=== PATIENT | female | born 1945 | race Caucasian/White ===

== ENCOUNTER 2017-05-09 18:25 | Observation (INO) | payer MEDICARE ==
[~2017-05-09] VITALS: Ht 165.1 cm; Wt 109.2 kg
--- NOTE | ~2017-05-09 | HEMODYNAMI ---
PATIENT:SABIHA Arevalo MEDICAL RECORD: [id number] : 43 [id number] ADMISSION DATE: 05/09/17 Generatedon:05/10/201711:31 Patient name: SABIHA Arevalo Patient #: [id number] SSN: DO B: 1945 Date of study: 05/10/2017 Page: Of Hemodynamic Procedure Report Patient Data Patient Demographics Procedure consent was obtained First Name: SABIHA Gender: Female Last Name: Mickey : 1945 Patient #: [id number] Age: 71 year(s) Race: Unknown Additional ID: [id number] Contact details Address: [address] State: [place] City: [facility] Zip code: [address] Admission Admission Data Admission Date: 05/09/2017 Admission Time: 22:26 Room #: .2114 Height (in.): 65 BSA: 2.14 (m2) Height (cm.): 165.1 BMI: 39.99 (kg/m2) Weight (lbs.): 240.31 Weight (kg.): 109 Lab Results Lab Result Date: 05/10/2017 Lab Result Time: 0:00 Biochemistry Name Units Result Min Max BUN mg/dl 11 --(-*--)-- 7 18 CK-MB ng/ml 0.5 --(*---)-- 0 3.6 Creatinine mg/dl 0.8 --(-*--)-- 0.6 1.3 Troponin l ng/ml 0.017 --(-*--)-- 0 0.06 CBC Name Units Result Min Max Hemoglobin g/dl 13.3 -*(----)-- 13.5 17.5 Procedure Procedure Types Cath Procedure Diagnostic Procedure LHC LHC w/Coronaries Miscellaneous Procedures Moderate Sedation up to 15 minutes Procedure Description Procedure Date Procedure Date: 05/10/2017 Procedure Start Time: 11:20 Procedure End Time: 11:31 Procedure Staff Name Function Eliot Vann MD Performing Physician Stacy Pope RN Nurse Alexandro Fine RT Monitor Russ Cisse RN Stone Sandblaster Anderson Panchal RT Scrub Procedure Data Cath Procedure Fluoroscopy Diagnostic fluoroscopy Total fluoroscopy Time: 0.8 time: 0.8 min min Diagnostic fluoroscopy Total fluoroscopy dose: 381 dose: 381 mGy mGy Contrast Material Contrast Material Type Amount (ml) Isovue 300 59 Entry Location Entry Primary Successful Side Size Upsize Upsize Entry Closure Succes sful Closure Location (Fr) 1 (Fr) 2 (Fr) Remarks Device Remarks Femoral Right 5 Fr Exoseal artery Estimated blood loss: 10 ml Diagnostic catheters Device Type Used For End Catheter Placement Cordis 5Fr Pigtail Procedure Catheter (MP) Cordis 5Fr JL 4.0 Procedure Catheter (MP) Cordis 5Fr 3DRC Catheter Procedure (MP) Procedure Complications No complications Procedure Medications Medication Administration Route Dosage Oxygen NC 2 l/min Heparin Flush Bag added to field 2 bags (1000units/500ml NS) Lidocaine 2% added to field 20 Radial Cocktail added to field 1 syringe (Verapomil 2mg/Nitro 400mcg/Heparin 1500units) Versed I.V. 1 mg Fentanyl I.V. 50 mcg Versed I.V. 1 mg Fentanyl I.V. 50 mcg Fentanyl I.V. 50 mcg Hemodynamics Rest BSA: 2.14 (m2) O2 Consumption: Estimated: 180.06 (ml/min) O2 Consumption indexed : Estimated:84.14 (ml/min/m) Heart Rate: 50 (bpm) Snapshots Pre Cath Intra NCS Post Cath Vital Signs Time Heart Resp SPO2 NIBP (mmHg) Rhythm Pain Sedation Rate (ipm) (%) Status Level (bpm) 11:10:29 55 18 100 124/79(100) SB 0 (11) 10(A) , No pain 11:15:28 51 17 99 Measuring SB 0 (11) 10(A) , No pain 11:15:51 48 18 98 115/62(81) SB 0 (11) 10(A) , No pain 11:20:05 54 16 96 111/66(77) SB 0 (11) 10(A) , No pain 11:24:19 55 17 96 116/62(82) SB 0 (11) 9(A) , No pain 11:28:35 57 16 96 116/63(86) SB 0 (11) 9(A) , No pain 11:30:27 56 16 96 117/65(81) SB 0 (11) 10(A) , No pain Medications Time Medication Route Dose Verified Delivered Reason Notes Eff ectiveness by by 11:09:12 Oxygen NC 2 l/min Eliot Stacy Per Edwar Pope RN physician 11:09:19 Heparin Flush added 2 bags Eliot Mccabe used for Bag to Edwar Vann MD procedure (1000units/500ml field NS) 11:09:26 Lidocaine 2% added 20ml Eliot Eliot used for to vial Edwar Vann MD procedure field 11:09:33 Radial Cocktail added 1 Eliot Eliot used for (Verapomil to syringe Edwar Vann MD procedure 2mg/Nitro field 400mcg/Heparin 1500units) 11:17:50 Versed I.V. 1 mg Eliot Stacy for Edwar Pope RN sedation 11:17:55 Fentanyl I.V. 50 mcg Eliot Stacy for Edwar Pope RN sedation 11:20:25 Versed I.V. 1 mg Eliot Stacy for Edwar Pope RN sedation 11:20:33 Fentanyl I.V. 50 mcg Eliot Stacy for Edwar Pope RN sedation 11:22:20 Fentanyl I.V. 50 mcg Eliot Stacy for Edwar Pope RN sedation Procedure Log Time Note 10:50:51 Russ Cisse RN sent for patient. Start room use. 11:03:00 Time tracking: Regular hours 11:03:04 Plan of Care:Hemodynamics will remain stable., Cardiac rhythm will remain stable., Comfort level will be maintained., Respiratory function will remain adequate., Patient/ family verbilizes understanding of procedure., Procedure tolerated without complication., Recovers from procedure without complications.. 11:03:36 Patient received from PCU to CCL 2 Alert and oriented. Tansferred to table in Supine position. 11:03:37 Warm blankets applied, and tamiko hugger turned on for patient comfort. 11:03:37 Correct patient and procedure confirmed by team. 11:03:39 Signed procedure consent form obtained from patient. 11:03:40 ECG and BP/O2 sat monitors applied to patient. 11:07:34 H&P Date Dictated: 05/10/2017 Within 30 days and on chart.. 11:07:35 Pre-procedure instructions explained to patient. 11:07:36 Pre-op teaching completed and patient verbalized understanding. 11:07:37 Family in waiting room. 11:07:38 Patient NPO since Midnight. 11:07:40 Is the patient allergic to Iodine/contrast media? No. 11:07:43 Is patient on blood thinner?No 11:07:44 Patient diabetic? No. 11:07:46 Patient not . Patient is over age 55. 11:08:06 Previous problem with sedation/anesthesia? No . 11:08:09 Snore? Yes 11:08:11 Sleep apnea? No 11:08:12 Deviated septum? No 11:08:14 Opens mouth fully? Yes 11:08:16 Sticks out tongue? Yes 11:08:22 Airway obstruction? No ? 11:08:33 Dentures? Yes IN 11:08:58 Vital chart was started 11:09:12 Oxygen 2 l/min NC was administered by Stacy Pope RN; Per physician; 11:09:19 Heparin Flush Bag (1000units/500ml NS) 2 bags added to field was administered by Eliot Vann MD; used for procedure; 11:09:26 Lidocaine 2% 20ml vial added to field was administered by Eliot Vann MD; used for procedure; 11:09:33 Radial Cocktail (Verapomil 2mg/Nitro 400mcg/Heparin 1500units) 1 syringe added to field was administered by Eliot Vann MD; used for procedure; 11:16:39 Baseline sample Acquired. 11:16:43 Rhythm: sinus bradycardia 11:16:44 Full Disclosure recording started 11:16:49 Pre procedure: right dorsailis pedis pulse 1+ Palpable, but thready & weak; easily obliterated 11:16:51 Modified Flo's test Ulnar < 7 seconds 11:16:52 Patient pain scale 0/10 ?. 11:16:56 IV patent on arrival in left forearm with 0.9% NaCl at O. 11:17:01 Lab results completed and on chart. 11:17:42 Right Radial & Right Groin area was prepped with chlora-prep and draped in sterile fashion 11:17:43 Alarms reviewed by R. N. 11:17:43 Sharps counted by scrub and verified by R.N. 11:17:44 --------ALL STOP TIME OUT------ 11:17:44 Final Timeout: patient, procedure, and site verified with staff and physician. All members of the team are in agreement. 11:17:46 Right Radial & Right Groin site verified by team. 11:17:49 Physical assessment completed. ASA score P 2 - A patient with mild systemic disease as per Eliot Vann MD. 11:17:50 Versed 1 mg I.V. was administered by Stacy Pope RN; for sedation; 11:17:53 Sedation plan: IV Moderate Sedation Versed, Fentanyl 11:17:55 Fentanyl 50 mcg I.V. was administered by Stacy Pope RN; for sedation; 11:18:26 Use device set Radial Dx 11:18:29 Tegaderm 4 x 4 opened to sterile field. 11:18:30 Acist Hand Control opened to sterile field. 11:18:30 Acist Manifold opened to sterile field. 11:18:33 Acist Syringe opened to sterile field. 11:18:33 Medline Cath Pack opened to sterile field. 11:18:34 Bag Decanter opened to sterile field. 11:18:34 Terumo 6Fr Slender Glidesheath opened to sterile field. 11:18:34 St Maikel 260cm J .035 wire opened to sterile field. 11:18:35 MBrace Wrist Support opened to sterile field. 11:20:25 Versed 1 mg I.V. was administered by Stacy Pope RN; for sedation; 11:20:33 Fentanyl 50 mcg I.V. was administered by Stacy Pope RN; for sedation; 11:20:39 Procedure started. 11:20:54 Local anesthetic to right radial artery with Lidocaine 2% by Eliot Vann MD.INITIAL ACCESS ONLY 11:22:20 Fentanyl 50 mcg I.V. was administered by Stacy Pope RN; for sedation; 11:23:15 Unable to gain radial access, moving to femoral approach. 11:23:18 Local anesthetic to right femoral artery with Lidocaine 2% by Eliot Vann MD.ADDITIONAL ACCESS 11:23:24 Terumo 5Fr [place] Sheath opened to sterile field. 11:23:28 Use device set Multipack Set 11:23:30 Diagnostic Infinity 5Fr Multipack catheter opened to sterile field. 11:23:39 A 5 Fr sheath was inserted into the Right Femoral artery 11:24:11 Lab Result : Hemoglobin 13.3 g/dl 11:24:11 Lab Result : Creatinine 0.8 mg/dl 11:24:11 Lab Result : BUN 11 mg/dl 11:24:21 A Cordis 5Fr Pigtail Catheter (MP) was advanced over the wire and used for Procedure. 11:24:42 LV angiography performed. 11:24:44 LV gram done using MOTA 11:24:49 EF : 50 % 11::52 Injector settings: Ml/sec: 10, Volume: 20, 11:24:53 Catheter removed. 11:24:57 A Cordis 5Fr JL 4.0 Catheter (MP) was advanced over the wire and used for Procedure. 11:25:02 Patient Height : 165.1 cm 11:25:04 Patient Weight : 109 kg 11:25:23 LCA angiography performed. 11:26:40 Lab Result : CK-MB 0.5 ng/ml 11::40 Lab Result : Troponin l 0.017 ng/ml 11:26:43 Catheter removed. 11:26:48 A Cordis 5Fr 3DRC Catheter (MP) was advanced over the wire and used for Procedure. 11:26:54 RCA angiography performed. 11:27:03 Cordis 5Fr Exoseal opened to sterile field. 11:27:17 Sheath removed intact; hemostasis achieved with Exoseal to the Right Femoral artery. 11:27:19 Procedure ended.(Physican Out) 11:27:29 Fluoroscopy time 00.80 minutes. 11:27:32 Fluoroscopy dose: 381 mGy 11:27:32 Flurop Dose total: 381 11:27:35 Contrast amount:Isovue 300 59ml. 11:27:37 Sharps counted by scrub and verified by R.N. 11:27:38 Insertion/operative site no bleeding no hematoma. 11:27:41 Post-op/insertion site Right Femoral artery dressed using a 4 x 4 and Tegaderm. 11:27:42 Post Procedure Pulses reassessed and unchanged 11::44 Post-procedure physical assessment completed. ASA score P 2 - A patient with mild systemic disease as per Eliot Vann MD. 11:27:46 Post procedure rhythm: unchanged. 11:27:49 Estimated blood loss: 10 ml 11:27:50 Post procedure instruction explained to patient.Patient verbalizes understanding. 11:27:50 Patient needs reinforcement of post procedure teaching. 11:27:58 Procedure and supply charges have been captured, reviewed, submitted and are correct. 11:28:00 Procedure Complication : No complications 11:30:56 Vital chart was stopped 11:30:57 See physician's report for complete and final results. 11:31:00 Report given to PCU. 11:31:03 Patient transfered to PCU with Bed. 11:31:05 Procedure ended. 11:31:05 Full Disclosure recording stopped 11:31:07 End room use (Document Last) Device Usage Item Name Manufacture Quantity Catalog Hospital Part Current Minimal Lot# / Number Charge Number Stock Stock Serial# Code Tegaderm 4 1 [id number] [id number] 994896 5 x 4 Acist Hand Acist 1 99772 775510 600307 377037 5 Control [employer] Inc Acist Acist 1 21591 913590 404175 325179 5 Manifold Medical Systems Inc Acist Acist 1 08715 950437 010737 571600 20 Syringe Medical Systems Inc Medline Cardinal 1 [id number] 517531 47467 166488 5 Cath Pack Health Bag Microtek 1 2002S 791602 97794 809139 5 Decanter [employer] Inc[employer] Terumo 6Fr Terumo 1 [id number] 847500 293470 947692 [address] Maikel 1 378170 377541 490749 072839 30 260cm J .035 wire MBrace Advanced 1 140-0250-00 350348 59906 579938 5 Wrist Vascular Support Dynamics Terumo 5Fr Terumo 1 [id number] 857120 467020 221341 40 [place] Sheath Diagnostic Cardinal 1 [id number] 474546 20756 488892 30 Infinity Health 5Fr Multipack catheter Cordis 5Fr Cardinal 1 425407 5 Pigtail Health Catheter (MP) Cordis 5Fr Cardinal 1 [id number] 5 JL 4.0 Health Catheter (MP) Cordis 5Fr Cardinal 1 020178 5 3DRC Health Catheter (MP) Cordis 5Fr Cardinal 1 EX500 834593 156260 370365 10 [facility] Health Signature Audit [place] Stage Time Signature Unsigned Intra-Procedure 05/10/2017 Alexandro Fine 11:31:22 AM RT(R) Signatures Monitor : Alexandro Fine RT Signature : Date : Time : [id number] [place] [address]
--- NOTE | ~2017-05-09 | PRO ---
PATIENT:SABIHA Arevalo MEDICAL RECORD: [id number] : 43 LOCATION:D.M2 D.2114 ADMISSION DATE: 05/09/17 PROCEDURE PERFORMED BY: MARLON RODRIGUEZ MD PROCEDURE DATE: 05/10/17 PROCEDURES: 1. Left heart catheterization. 2. Selective coronary angiography. 3. Left ventriculogram. INDICATION: 1. Chest pain compatible with angina. PROCEDURE IN DETAIL: After informed consent was obtained and after detailed explanation of risks, benefits, as well as alternative therapies, the patient elected to proceed with angiogram. The right femoral area was prepped and draped in a normal sterile fashion. The right femoral artery was cannulated via modified Seldinger technique with placement of 5-Tunisian sheath. All catheters exchanged through this sheath. FINDINGS: The left ventriculogram was performed in standard 30 degree MOTA view, reveals good cardiac wall motion throughout all segments. Overall ejection fraction is 60%. SELECTIVE CORONARY ANGIOGRAPHY: 1. The left main, left anterior descending, left circumflex, and right coronary artery are all smooth-walled vessels with no angiographic evidence of coronary artery disease. OVERALL IMPRESSION: 1. No angiographic evidence of coronary artery disease. 2. Normal left heart pressures. 3. Normal left ventricular systolic function. 4. Chest pain is noncardiac in etiology. No further cardiac workup needs to be ascertained. MARLON RODRIGUEZ MD CC: [id number] DICTATION DATE: 05/10/172155 FUR POLISHER: JPASHA 05/10/172154 DIS IN 05/10/17 [facility] [address] [id number]
[2017-05-09 20:06] LABS: BASOPHILS 0.3 % (0-2); EOSINOPHILS 2.3 % (0-7); HEMATOCRIT 41.8 % (36.0-48.0); IMMATURE GRANULOCYTES 0.3 % (0-5); LYMPHOCYTES 22.8 % (15-50); MCHC 33.5 g/dL (31.0-37.0); MCV 92.5 fL (80.0-100.0); MEAN PLATELET VOLUME 9.5 fL (7.4-10.4); MONOCYTES 9.4 % (2-11); NEUTROPHILS 64.9 % (40-80); PLATELET COUNT 199 10x3/uL (130-400); RBC 4.52 10x6/uL (4.00-5.40); RDW 13.2 % (11.5-14.5); WBC 7.4 10x3/uL (4.8-10.8)
[2017-05-09 20:27] LABS: ALBUMIN 3.4 g/dL (3.4-5.0); ALKALINE PHOSPHATASE 83 U/L (46-116); ALT (SGPT) 62 U/L (10-68); BILIRUBIN - TOTAL 0.38 mg/dL (0.2-1.3); CALC OSMOLALITY 288 mosm/kg (275-300); CARBON DIOXIDE 27.2 mmol/L (21.0-32.0); CHLORIDE - SERUM 109 mmol/L (98-107); CREATININE - SERUM 0.8 mg/dL (0.6-1.3); GLUCOSE 103 mg/dL (74-106); POTASSIUM - SERUM 4.1 mmol/L (3.5-5.1); PROTEIN - SERUM 6.8 g/dL (6.4-8.2); SODIUM 145 mmol/L (136-145); UREA NITROGEN 13 mg/dL (7-18); eGFR NON AFRICAN AMERICAN 75 mL/min (90-120)
[2017-05-09 20:39] LABS: CKMB 0.6 U/L (0.0-3.6); CREATINE KINASE 146 UL (21-215)
[2017-05-09 20:40] LABS: TROPONIN-I < 0.017 ng/mL (0.000-0.060)
--- NOTE | 2017-05-09 23:06 | NUR ---
REPORT RECEIVED FROM RON BLOOM.
[2017-05-09 23:08] LABS: CKMB 0.4 U/L (0.0-3.6); CREATINE KINASE 146 UL (21-215); TROPONIN-I < 0.017 ng/mL (0.000-0.060)
[2017-05-09] MEDS ORDERED: CELEBREX200 MG PO (23:42)
[2017-05-09 23:46] VITALS: BP 114/55; Ht 165.1 cm; Wt 109.2 kg
[2017-05-10] VITALS: BP 123/57
[2017-05-10 05:33] LABS: CKMB 0.6 U/L (0.0-3.6); CREATINE KINASE 138 UL (21-215)
[2017-05-10 05:34] LABS: TROPONIN-I < 0.017 ng/mL (0.000-0.060)
[2017-05-10 08:12] VITALS: BP 111/49
[2017-05-10 08:24] LABS: ANION GAP 13.9 mmol/L (8-16); CALCIUM 8.9 mg/dL (8.5-10.1); CARBON DIOXIDE 25.7 mmol/L (21.0-32.0); CREATININE - SERUM 0.8 mg/dL (0.6-1.3); POTASSIUM - SERUM 3.6 mmol/L (3.5-5.1)
[2017-05-10 08:28] LABS: BASOPHILS 0.2 % (0-2); EOSINOPHILS 2.8 % (0-7); HEMATOCRIT 40.2 % (36.0-48.0); HEMOGLOBIN 13.3 g/dL (12-16); IMMATURE GRANULOCYTES 0.2 % (0-5); LYMPHOCYTES 33.6 % (15-50); MCH 30.9 pg (26.0-34.0); MCHC 33.1 g/dL (31.0-37.0); MCV 93.3 fL (80.0-100.0); MEAN PLATELET VOLUME 10.2 fL (7.4-10.4); MONOCYTES 10.1 % (2-11); NEUTROPHILS 53.1 % (40-80); PLATELET COUNT 198 10x3/uL (130-400); RBC 4.31 10x6/uL (4.00-5.40); RDW 13.5 % (11.5-14.5)
[2017-05-10 08:30] LABS: WBC 5.3 10x3/uL (4.8-10.8)
--- NOTE | 2017-05-10 11:04 | NUR ---
PRE-OPS GIVEN. TO ARTIFICIAL PEARL MAKER BY BED.
[2017-05-10 11:12] LABS: CKMB 0.5 U/L (0.0-3.6); CREATINE KINASE 143 UL (21-215); TROPONIN-I < 0.017 ng/mL (0.000-0.060)
--- NOTE | 2017-05-10 11:49 | NUR ---
BACK FROM STRIPE MATCHER. VS WNL. RIGHT GROIN STBLE WITHOUT BLEEDING OR HEMATOMA NOTED. WILL MONITOR.
--- NOTE | 2017-05-10 13:52 | NUR ---
BED REST UP. GROIN STABLE.
--- NOTE | 2017-05-10 14:05 | NUR ---
IV AND TELEMETRY DCD. DC PLANS GIVEN. UNDERSTANDING VOICED. ESCORTED TO CAR BY W/C.
--- NOTE | 2017-05-10 14:06 | NUR ---
LEAVING HOSP BY [facility].
== END 2017-05-10 14:06 | disposition home or self-care (01) ==
LOC: D.ER 18:25 → OBSVTIME 22:26 → D.M2 22:26
PROVIDERS: Family Medicine; Nurse Practitioner Acute Care; ADMIT Internal Medicine Interventional Cardiology
DX: R07.89 Other chest pain (principal); R06.02 Shortness of breath; Z82.49 Family history of ischemic heart disease and other diseases of the circulatory system; I45.10 Unspecified right bundle-branch block; Z87.891 Personal history of nicotine dependence

== ENCOUNTER → 2017-05-22 21:34 | Outpatient (CLI) | payer MEDICARE ==
[2017-05-09 23:46] VITALS: BMI 38.3
[~2017-05-22 21:34] MED LIST: CELEBREX200 MG PO
== END | disposition home or self-care (01) ==
LOC: D.LABREF 21:34
DX: M17.11 Unilateral primary osteoarthritis, right knee (principal); Z11.8 Encounter for screening for other infectious and parasitic diseases